=== PATIENT | female | born 2000 | race Caucasian/White ===

== ENCOUNTER 2020-03-16 02:15 | Emergency (ER) | payer SELFPAY ==
[~2020-03-16] VITALS: Ht 177.8 cm; Wt 131.5 kg
[2020-03-16] MEDS ORDERED: ONDANSETRON 4 MG/2 ML (SDV) Z0FRAN IVP ONE (03:00)
[2020-03-16] MEDS ORDERED: KETOROLAC 30 MG/ML VIAL IVP ONE (03:00)
[2020-03-16 03:20] LABS: BASOPHILS % (AUTO) 0 % (0-10); EOSINOPHILS # (AUTO) 0.2 10^3/uL (0.0-0.3); EOSINOPHILS % (AUTO) 2 % (0-10); HEMATOCRIT 39 % (35-52); HEMOGLOBIN 13.1 G/DL (11.5-16.0); LYMPHOCYTES # (AUTO) 2.8 X 10^3 (1.0-4.0); LYMPHOCYTES % (AUTO) 35 % (12-44); MEAN CORPUSCULAR HEMOGLOBIN 29 PG (25-34); MEAN CORPUSCULAR HGB CONC 34 G/DL (32-36); MEAN CORPUSCULAR VOLUME 86 FL (80-99); MEAN PLATELET VOLUME 11.6 FL (7.4-10.4); MONOCYTES # (AUTO) 0.8 X 10^3 (0.0-1.0); MONOCYTES % (AUTO) 10 % (0-12); NEUTROPHILS # (AUTO) 4.2 X 10^3 (1.8-7.8); NEUTROPHILS % (AUTO) 53 % (42-75); PLATELET COUNT 276 10^3/uL (130-400); RED CELL DISTRIBUTION WIDTH 12.6 % (10.0-14.5)
[2020-03-16 03:28] LABS: ALBUMIN 4.3 GM/DL (3.2-4.5)
[2020-03-16 03:29] LABS: CHLORIDE 108 MMOL/L (98-107); SODIUM 142 MMOL/L (135-145)
[2020-03-16 03:30] LABS: CALCIUM 9.6 MG/DL (8.5-10.1)
[2020-03-16 03:31] LABS: GLUCOSE 95 MG/DL (70-105); TOTAL PROTEIN 7.4 GM/DL (6.4-8.2)
[2020-03-16 03:32] LABS: CARBON DIOXIDE 22 MMOL/L (21-32)
[2020-03-16 03:33] LABS: BILIRUBIN,TOTAL 0.3 MG/DL (0.1-1.0)
[2020-03-16 03:35] LABS: ALKALINE PHOSPHATASE 80 U/L (40-136); GFR ESTIMATED > 60
[2020-03-16 03:36] LABS: BUN/CREATININE RATIO 17
[2020-03-16 03:38] LABS: ALANINE AMINOTRANSFERASE 37 U/L (0-55); LIPASE 20 U/L (8-78)
[2020-03-16] MEDS ORDERED: LACTATED RINGERS 1,000 ML IV ONE (03:56)
--- NOTE | 2020-03-16 04:06 | ED Abdominal Pain ---
General Chief Complaint: Abdominal/GI Problems Stated Complaint: UPPER ABD PAIN Source of Information: Patient Exam Limitations: No Limitations History of Present Illness Date Seen by Provider: Mar 16, 2020 Time Seen by Provider: 02:27 Initial Comments This 19-year-old young lady presents to the emergency room with complaints of epigastric and right upper quadrant pain radiating to her back since 22:00. She had eaten chili shortly before. She denies any vomiting, fever, diarrhea, or constipation. She does have nausea without vomiting. She denies any prior episodes. Allergies and Home Medications Allergies Coded Allergies: No Known Drug Allergies (Unverified , 03/16/20) Patient Home Medication List Home Medication List Reviewed: Yes Review of Systems Review of Systems Constitutional: no symptoms reported EENTM: No Symptoms Reported Respiratory: No Symptoms Reported Cardiovascular: No Symptoms Reported Gastrointestinal: See HPI Genitourinary: No Symptoms Reported Musculoskeletal: no symptoms reported Skin: no symptoms reported Psychiatric/Neurological: No Symptoms Reported Endocrine: No Symptoms Reported Hematologic/Lymphatic: No Symptoms Reported Past Nlcervl-Ssebnk-Jioicn Hx Past Med/Social Hx: Reviewed Nursing Past Med/Soc Hx Patient Social History Alcohol Use: Occasionally Uses Recreational Drug Use: No Smoking Status: Never a Smoker Recent Foreign Travel: No Contact w/Someone Who Travel: No Recent Hopitalizations: No Physical Abuse: No Sexual Abuse: No Mistreated: No Fear: No Seasonal Allergies Seasonal Allergies: No Past Medical History Surgeries: No Respiratory: No Cardiac: No Neurological: No : No Last Menstrual Period: Mar 09, 2020 Genitourinary: No Gastrointestinal: No Musculoskeletal: No Endocrine: No Cancer: No Psychosocial: Yes Anxiety, Depression Integumentary: No Physical Exam Vital Signs Vital Signs - First Documented 03/16/20 03/16/20 02:44 04:59 Temp 36.2 Pulse 79 Resp 20 B/P (MAP) 106/88 (94) Pulse Ox 100 O2 Delivery Room Air Capillary Refill : Height/Weight/BMI Height: '" Weight: lbs. oz. kg; BMI Method: General Appearance: WD/WN, mild distress, obese HEENT: PERRL/EOMI, normal ENT inspection Neck: normal inspection Respiratory: lungs clear, normal breath sounds, no respiratory distress, no accessory muscle use Cardiovascular: regular rate, rhythm, no edema, no murmur Gastrointestinal: normal bowel sounds, soft, tenderness (right upper quadrant and epigastrium with positive Lemons sign) Extremities: normal inspection, no pedal edema Neurologic/Psychiatric: non destructive evaluation manager II-XII nml as tested, no motor/sensory deficits, alert, oriented x 3, other (anxious) Skin: normal color, warm/dry Progress/Results/Core Measures Results/Orders Lab Results Laboratory Tests Test 03/16/20 03:05 03/16/20 04:21 Range/Units White Blood Count 8.0 4.3-11.0 10^3/uL Red Blood Count 4.51 4.35-5.85 10^6/uL Hemoglobin 13.1 11.5-16.0 G/DL Hematocrit 39 35-52 % Mean Corpuscular Volume 86 80-99 FL Mean Corpuscular Hemoglobin 29 25-34 PG Mean Corpuscular Hemoglobin Concent 34 32-36 G/DL Red Cell Distribution Width 12.6 10.0-14.5 % Platelet Count 276 130-400 10^3/uL Mean Platelet Volume 11.6 H 7.4-10.4 FL Neutrophils (%) (Auto) 53 42-75 % Lymphocytes (%) (Auto) 35 12-44 % Monocytes (%) (Auto) 10 0-12 % Eosinophils (%) (Auto) 2 0-10 % Basophils (%) (Auto) 0 0-10 % Neutrophils # (Auto) 4.2 1.8-7.8 X 10^3 Lymphocytes # (Auto) 2.8 1.0-4.0 X 10^3 Monocytes # (Auto) 0.8 0.0-1.0 X 10^3 Eosinophils # (Auto) 0.2 0.0-0.3 10^3/uL Basophils # (Auto) 0.0 0.0-0.1 10^3/uL Sodium Level 142 135-145 MMOL/L Potassium Level 4.0 3.6-5.0 MMOL/L Chloride Level 108 H 98-107 MMOL/L Carbon Dioxide Level 22 21-32 MMOL/L Anion Gap 12 5-14 MMOL/L Blood Urea Nitrogen 15 7-18 MG/DL Creatinine 0.90 0.60-1.30 MG/DL Estimat Glomerular Filtration Rate > 60 BUN/Creatinine Ratio 17 Glucose Level 95 70-105 MG/DL Calcium Level 9.6 8.5-10.1 MG/DL Corrected Calcium 9.4 8.5-10.1 MG/DL Total Bilirubin 0.3 0.1-1.0 MG/DL Aspartate Amino Transf (AST/SGOT) 21 5-34 U/L Alanine Aminotransferase (ALT/SGPT) 37 0-55 U/L Alkaline Phosphatase 80 40-136 U/L C-Reactive Protein High Sensitivity 0.30 0.00-0.50 MG/DL Total Protein 7.4 6.4-8.2 GM/DL Albumin 4.3 3.2-4.5 GM/DL Lipase 20 8-78 U/L Serum Test, Qualitative NEGATIVE NEGATIVE Urine Color YELLOW Urine Clarity SL CLOUDY Urine pH 5.5 5-9 Urine Specific [place] >=1.030 1.016-1.022 Urine Protein NEGATIVE NEGATIVE Urine Glucose (UA) NEGATIVE NEGATIVE Urine Ketones NEGATIVE NEGATIVE Urine Nitrite NEGATIVE NEGATIVE Urine Bilirubin NEGATIVE NEGATIVE Urine Urobilinogen 0.2 < = 1.0 MG/DL Urine Leukocyte Esterase NEGATIVE NEGATIVE Urine RBC (Auto) NEGATIVE NEGATIVE Urine RBC NONE /HPF Urine WBC NONE /HPF Urine Squamous Epithelial Cells 10-25 H /HPF Urine Crystals NONE /LPF Urine Bacteria FEW H /HPF Urine Casts NONE /LPF Urine Mucus MODERATE H /LPF Urine Culture Indicated NO My Orders Orders - JM MCFADDEN MD Cbc With Automated Diff (03/16/20 02:57) Comprehensive Metabolic Panel (03/16/20 02:57) Hs C Reactive Protein (03/16/20 02:57) Hcg,Qualitative Serum (03/16/20 02:57) Lipase (03/16/20 02:57) Ua Culture If Indicated (03/16/20 02:57) Ed Iv/Invasive Line Start (03/16/20 02:57) Ketorolac Injection (Toradol Injection) (03/16/20 03:00) Ondansetron Injection (Zofran Injectio (03/16/20 03:00) Lactated Ringers (Lr 1000 Ml Iv Solution (03/16/20 03:56) Medications Given in ED Current Medications Medications Dose Ordered Sig/Paul Route Start Time Stop Time Status Last Admin Dose Admin Ketorolac Tromethamine 15 mg ONCE ONCE IVP 03/16/20 03:00 03/16/20 03:01 DC 03/16/20 03:07 15 MG Lactated Ringer's 1,000 ml @ 0 mls/hr Q0M ONCE IV 03/16/20 03:56 03/16/20 03:57 DC 03/16/20 04:06 999 MLS/HR Ondansetron HCl 8 mg ONCE ONCE IVP 03/16/20 03:00 03/16/20 03:01 DC 03/16/20 03:07 8 MG Vital Signs/I&O 03/16/20 03/16/20 02:44 04:59 Temp 36.2 36.2 Pulse 79 70 Resp 20 18 B/P (MAP) 106/88 (94) 110/87 (94) Pulse Ox 100 O2 Delivery Room Air Room Air Progress Progress Note : Time: 04:02 Progress Note Patient was treated with Toradol and Zofran with significant improvement in symptoms. Symptoms are suspicious for gallbladder disease. An order for outpatient US is being provided. Workup in ED has been unremarkable. UA is pending. A 1L LR bolus has been ordered since patient will be asked to remain NPO until after her GB US. Departure Impression Primary Impression: Right upper quadrant pain Additional Impression: Nausea Disposition: 01 HOME, SELF-CARE Condition: Improved Departure-Patient Inst. Decision time for Depature: 04:05 Referrals: [facility] (PCP/Family) Primary Care Physician Patient Instructions: Acute Abdomen (Belly Pain), Adult (DC) Add. Discharge Instructions: Do not eat or drink until after your ultrasound. Return to the hospital at 7:30 this morning with your ultrasound order. Stay in the US department and wait for instructions. Return to the ER if you are having severe worsening of symptoms in the meantime. All discharge instructions reviewed with patient and/or family. Voiced understanding. Copy Copies To 1: KLAUS PATEL JOSHUA T MD Mar 16, 2020 04:06
[2020-03-16 04:34] LABS: BILIRUBIN,URINE NEGATIVE (NEGATIVE); CLARITY,URINE SL CLOUDY; COLOR,URINE YELLOW; GLUCOSE, URINE (UA) NEGATIVE (NEGATIVE); KETONES,URINE NEGATIVE (NEGATIVE); LEUKOCYTE ESTERASE ,URINE NEGATIVE (NEGATIVE); NITRITE,URINE NEGATIVE (NEGATIVE); PH,URINE 5.5 (5-9); PROTEIN,URINE NEGATIVE (NEGATIVE)
[2020-03-16 04:41] LABS: BACTERIA,URINE FEW /HPF
[2020-03-16 04:59] VITALS: BP 110/87
--- NOTE | 2020-03-16 04:59 | NUR ---
OUTPATIENT ORDER FORM FOR GALLBLADDER US GIVEN TO PT, COPY TO ER ONLINE MERCHANT, AND COPY SENT TO REGISTRATION/SCHEDULING DEPT.
== END 2020-03-16 04:59 | disposition home or self-care (01) ==
LOC: ER 02:21
DX: R10.11 Right upper quadrant pain (principal); R11.0 Nausea
CPT/HCPCS: 36415; 80053; 81000; 83690; 84703; 85025; 86141

== ENCOUNTER → 2020-03-16 | Outpatient (CLI) | payer SELFPAY ==
--- NOTE | 2020-03-16 12:22 | Diagnostic Imaging Report ---
PROCEDURE: US Gallbladder. TECHNIQUE: Multiple real-time grayscale images were obtained over the right upper quadrant in various projections. INDICATION: Right upper quadrant pain. FINDINGS: The liver is normal in size at 17.6 cm. No discrete liver mass is detected. Portal vein is patent and shows normal direction of flow. Gallbladder does contain small stones. There is a non-mobile stone in the region of the gallbladder neck. No significant wall thickening is seen. Extrahepatic bile duct is somewhat obscured. Pancreas was obscured. Visualized abdominal aorta in the midportion is non-aneurysmal. The proximal and distal aorta were obscured. IVC is obscured. Right kidney is without calculi or hydronephrosis. There is no ascites. IMPRESSION: 1. Cholelithiasis without evidence of acute cholecystitis. Dictated by: Dictated on workstation # [id number]
== END ==
LOC: RAD 07:30
PROVIDERS: ATTEND Family Medicine
DX: R11.0 Nausea (principal); K80.20 Calculus of gallbladder without cholecystitis without obstruction
CPT/HCPCS: 76705

== ENCOUNTER 2020-04-19 05:35 | Outpatient (CLI) | payer OTHER ==
[~2020-04-19] VITALS: Ht 178 cm; Wt 122.7 kg
[2020-04-19] MEDS ORDERED: CITA20TA12 PO (15:47)
== END 2020-04-19 15:48 | disposition home or self-care (01) ==
LOC: PREOP 05:35
PROVIDERS: ATTEND Surgery
DX: Z01.818 Encounter for other preprocedural examination (principal)

== ENCOUNTER 2020-04-26 08:32 | Day surgery (SDC) | payer OTHER ==
[2020-04-26] VITALS (11 sets, daily range): BP systolic 93–129; BP diastolic 66–76
[~2020-04-26] VITALS: Ht 178 cm; Wt 122.7 kg
[~2020-04-26 08:32] MED LIST: CITA20TA12 PO
[2020-04-26] MEDS ORDERED: ceFAZolin 2 GM IV Premixed 50 ML IV ONE (08:45)
[2020-04-26] MEDS ORDERED: LACTATED RINGERS 1,000 ML IV PRN (09:03)
[2020-04-26] MEDS ORDERED: MIDAZOLAM 2 MG/2 ML (VERSED) VIAL IVP ONE (09:30)
[2020-04-26] MEDS ORDERED: ceFAZolin 2 GM IV Premixed 50 ML ONE (09:43)
[2020-04-26] MEDS ORDERED: MIDAZOLAM 2 MG/2 ML (VERSED) VIAL ONE ×2 (09:43→10:00)
[2020-04-26] MEDS ORDERED: ROCURONIUM 10 MG/ML 5 ML SYRINGE IV ONE (09:59)
[2020-04-26] MEDS ORDERED: ONDANSETRON 4 MG/2 ML (SDV) Z0FRAN ONE (09:59)
[2020-04-26] MEDS ORDERED: LIDOCAINE PF 2% 5 ML (XYLOCAINE) VIAL ONE (09:59)
[2020-04-26] MEDS ORDERED: proPOfol 200 MG/20 ML (DIPRIVAN) VIAL IV ONE (09:59)
[2020-04-26] MEDS ORDERED: DESFLURANE (SUPRANE) 15 ML INHAL SOLN ONE ×4 (10:00→10:59)
[2020-04-26] MEDS ORDERED: fentaNYL INJECTION 100 MCG/2 ML AMP ONE ×2 (10:00→11:30)
[2020-04-26] MEDS ORDERED: BUP/EPI 0.5% 1:200,000 (MARCAINE) 10ML VIAL IJ ONE (10:08)
[2020-04-26] MEDS ORDERED: IOPAMIDOL 61% 30 ML (ISOVUE 300) VIAL ONE (10:08)
[2020-04-26] MEDS ORDERED: NEOSTIGMINE 3 MG/3 ML VIAL ONE (10:57)
[2020-04-26] MEDS ORDERED: GLYCOPYRROLATE 0.2 MG/ML (ROBINUL) 2 ML VIAL ONE (10:57)
--- NOTE | 2020-04-26 11:28 | Progress Note-Post Operative ---
Post-Operative Progess Note Surgeon (s)/Fruit Tester (s) Surgeon TYLER BARROS DO Fruit Tester: Dr. Latif to assist in retraction dissection and closure Pre-Operative Diagnosis symptomatic cholelithiasis Post-Operative Diagnosis same Procedure & Operative Findings Date of Procedure 04/26/20 Procedure Performed/Findings PROCEDURE: Laparoscopic cholecystectomy with intraoperative cholangiogram. COMPLICATIONS: None. PROCEDURE: The patient was taken to the operating suite and was prepped and draped in sterile fashion. A surgical pause was performed. Just superior to the umbilicus, a 12 mm incision was made. Dissection was taken down to the fascia, which was then scored and grasped with a Theo and the abdomen was then entered. A 0 Vicryl suture was placed in a [id number] fashion and a Soto trocar was placed and secured. Pneumoperitoneum was achieved. A 5mm trochar place in the subxyphoid and 2 in the right upper quadrant. The gallbladder was then grasped and elevated. Adhesions to gallbladder were then taken down with blunt and cautery dissection. The cystic duct, and cystic artery were then dissected out. Clip was placed on the distal portion of the cystic duct which was then partially transected. An arrow catheter was inserted into the duct. The cholangiogram was then performed. No filing defects and contrast made its way into the duodenum. Catheter removed. Clips were placed on proximal portion of the cystic duct and then the duct was then transected. Clips were placed along the proximal and distal portion of the cystic artery which was then transected. Hook cautery was used to dissect the gallbladder from the gallbladder fossa achieving hemostasis. The gallbladder was placed in an Endobag and removed through the 12 mm trocar site. The abdomen was then reinspected. Copious amounts of irrigation were used to irrigate the abdomen and there were no signs of active bleeding. Hemostasis had been achieved. The 12 mm fascial defect was then closed with 0 Vicryl suture that had been placed in a [id number] fashion. The abdomen was then desufflated, the trocars were removed. The abdomen was then washed and dried. The skin was then closed using 4-0 Monocryl in a subcuticular fashion. The abdomen was washed and dried and Skin Affix was place over incisions. Patient tolerated the procedure well without any complications and was taken to the recovery room in stable condition. Anesthesia Type general Estimated Blood Loss Estimated blood loss (mL): min Specimens/Packing Specimens Removed gallbladder TYLER BARROS DO Apr 26, 2020 11:28
[2020-04-26] MEDS ORDERED: HYDR-4226 PO (11:29)
[2020-04-26] MEDS ORDERED: DOCU-143 PO (11:29)
[2020-04-26] MEDS ORDERED: fentaNYL INJECTION 100 MCG/2 ML AMP IVP ONE (11:30)
[2020-04-26] MEDS ORDERED: MEPERIDINE (DEMEROL) INJ 50 MG/ML IVP ONE (11:30)
[2020-04-26] MEDS ORDERED: ONDANSETRON 4 MG/2 ML (SDV) Z0FRAN IVP PRN (11:30)
--- NOTE | 2020-04-26 11:30 | Discharge Inst-Simple/Standard ---
Discharge Inst-Standard Discharge Medications New, Converted or Re-Newed RX: RX on Chart Patient Instructions/Follow Up Plan of Care/Instructions/FU: 2 weeks diann Activity as Tolerated: Yes Discharge Diet: Regular Diet Other Inst to Patient Follow up Appt: Make appointment for 2 weeks. Instructions: No lifting greater than 10 pounds. No strenuous activity. May shower in 24 hours, no tub bath or soaking. Use incentive spirometer at home as directed. No Smoking Skin/Wound Care: You have special glue over incision, it will fall off on it's own. Symptoms to Report: Appetite Changes, Extremity Discoloration, Numbness/Tingling, Swelling Increased, Bleeding Excessive, Eyesight Changes, Pain Increased, Urine Color Change, Constipation(Persistent), Fever over 101 degree F, Pain/Pressure in [address], Urinating Difficulty, Cough Up/Vomit Blood, Heart Beat Irreg/Pounding, Pain/Pressure in jaw, Vaginal Bleeding Increase, Cramps in feet or legs, Lightheadedness, Pain/Pressure in shoulder, Diarrhea(Persistent), Memory Changes Suddenly, Questions/Concerns, Weight gain consecutive days, Dizziness/Fainting, Nausea/Vomiting, Shortness of Breath, Weight gain over 2 pounds. If eyes or skin turn yellow notify physician. If questions or concerns contact your physician Or seek help at emergency department. TYLER BARROS DO Apr 26, 2020 11:29
--- NOTE | 2020-04-26 11:34 | Diagnostic Imaging Report ---
INDICATION: Cholelithiasis. Studies performed to provide fluoroscopy during intraoperative cholangiogram. Fluoroscopy was provided during intraoperative cholangiogram. 14 seconds of fluoroscopic time was utilized. Images demonstrate contrast being injected via the cystic duct remnant. Extrahepatic bile duct is normal caliber. Intrahepatic ducts are normal caliber. No filling defects are seen to suggest retained stone. Contrast flows into the duodenum. IMPRESSION: Fluoroscopy during intraoperative cholangiogram. Dictated by: Dictated on workstation # [id number]
--- NOTE | 2020-04-26 12:06 | Anesthesia-General Post-Op ---
General Patient Condition Mental Status/LOC: Same as Preop Cardiovascular: Satisfactory Nausea/Vomiting: Absent Respiratory: Satisfactory Pain: Controlled Complications: Absent Post Op Complications Complications None Follow Up Care/Instructions Patient Instructions None needed. Anesthesia/Patient Condition Patient Condition Patient is doing well, no complaints, stable vital signs, no apparent adverse anesthesia problems. No complications reported per nursing. MARY ROBBINS CRNA Apr 26, 2020 12:06
[2020-04-26] MEDS ORDERED: HYDROcodone/APAP 5 MG/325 MG (LORTAB) TAB ONE (12:18)
[2020-04-26] MEDS ORDERED: HYDROcodone/APAP 5 MG/325 MG (LORTAB) TAB PO PRN (12:30)
== END 2020-04-26 13:53 | disposition home or self-care (01) ==
LOC: SDC 08:32
PROVIDERS: ATTEND Surgery
DX: K80.10 Calculus of gallbladder with chronic cholecystitis without obstruction (principal); J45.909 Unspecified asthma, uncomplicated; F32.9 Major depressive disorder, single episode, unspecified; F41.9 Anxiety disorder, unspecified; E66.01 Morbid (severe) obesity due to excess calories; Z68.38 Body mass index [BMI] 38.0-38.9, adult; Z79.899 Other long term (current) drug therapy; Z79.51 Long term (current) use of inhaled steroids; Z88.5 Allergy status to narcotic agent; Z80.9 Family history of malignant neoplasm, unspecified
CPT/HCPCS: 76000; 84703; 87081; 88304

== ENCOUNTER 2020-12-26 20:53 | Emergency (ER) | payer OTHER ==
[~2020-12-26] VITALS: Ht 178 cm; Wt 136.0 kg
[~2020-12-26 20:53] MED LIST changes: +DOCU-143 PO; +HYDR-4226 PO
[2020-12-26] MEDS ORDERED: SERT25TA PO (21:14)
[2020-12-26] MEDS ORDERED: NORG1TAB14 PO (21:14)
[2020-12-26 21:30] LABS: BILIRUBIN,URINE NEGATIVE (NEGATIVE); CLARITY,URINE CLEAR; COLOR,URINE YELLOW; GLUCOSE, URINE (UA) NEGATIVE (NEGATIVE); KETONES,URINE NEGATIVE (NEGATIVE); LEUKOCYTE ESTERASE ,URINE TRACE (NEGATIVE); NITRITE,URINE NEGATIVE (NEGATIVE); PROTEIN,URINE NEGATIVE (NEGATIVE)
[2020-12-26] MEDS ORDERED: LACTATED RINGERS 1,000 ML IV ONE (21:30)
[2020-12-26] MEDS ORDERED: ONDANSETRON 4 MG/2 ML (SDV) Z0FRAN IVP ONE ×2 (21:30→22:45)
[2020-12-26 21:40] LABS: BASOPHILS % (AUTO) 0 % (0-10); EOSINOPHILS # (AUTO) 0.1 10^3/uL (0.0-0.3); EOSINOPHILS % (AUTO) 1 % (0-10); HEMATOCRIT 41 % (35-52); HEMOGLOBIN 13.5 g/dL (11.5-16.0); LYMPHOCYTES # (AUTO) 2.6 10^3/uL (1.0-4.0); LYMPHOCYTES % (AUTO) 37 % (12-44); MEAN CORPUSCULAR HEMOGLOBIN 29 pg (25-34); MEAN CORPUSCULAR HGB CONC 33 g/dL (32-36); MEAN CORPUSCULAR VOLUME 87 fL (80-99); MEAN PLATELET VOLUME 11.3 fL (9.0-12.2); MONOCYTES # (AUTO) 0.7 10^3/uL (0.0-1.0); MONOCYTES % (AUTO) 10 % (0-12); NEUTROPHILS # (AUTO) 3.6 10^3/uL (1.8-7.8); NEUTROPHILS % (AUTO) 52 % (42-75); PLATELET COUNT 288 10^3/uL (130-400)
[2020-12-26 21:42] LABS: AMPHETAMINE SCREEN, URINE NEGATIVE (NEGATIVE); BARBITURATE SCREEN URINE NEGATIVE (NEGATIVE); BENZODIAZEPINES SCREEN URINE NEGATIVE (NEGATIVE); CANNABINOID SCREEN, URINE NEGATIVE (NEGATIVE); COCAINE SCREEN URINE NEGATIVE (NEGATIVE); METHADONE STAT NEGATIVE (NEGATIVE); METHAMPHETAMINE SCREEN URINE S NEGATIVE (NEGATIVE); OPIATE SCREEN URINE NEGATIVE (NEGATIVE); OXYCODONE STAT NEGATIVE (NEGATIVE); PROPOXYPHENE STAT NEGATIVE (NEGATIVE); TRICYCLIC ANTIDEPRESSANTS SCRE NEGATIVE (NEGATIVE)
[2020-12-26 21:45] LABS: WBC,URINE 25-50 /HPF
[2020-12-26 21:46] LABS: BACTERIA,URINE NEGATIVE /HPF
--- NOTE | 2020-12-26 21:58 | Diagnostic Imaging Report ---
EXAMINATION: CT head without contrast. TECHNIQUE: Multiple contiguous axial images were obtained through the brain without the use of intravenous contrast. All CT scans use one or more of the following dose optimizing techniques: automated exposure control, MA and/or KvP adjustment based on patient size and exam type or iterative reconstruction. HISTORY: Headache. Dizziness. COMPARISON: None available. FINDINGS: No large acute territorial ischemia, mass or hemorrhage. No midline shift or mass effect. The ventricles, cortical sulci and basilar cisterns are patent and unremarkable. The orbits are normal. Paranasal sinuses are normal. Mastoid air cells are clear. No soft tissue abnormality is seen. No osseus lesion or fracture is seen. IMPRESSION: No large acute territorial ischemia, mass or hemorrhage. Dictated by: Dictated on workstation # [id number]
[2020-12-26 22:01] LABS: ALBUMIN 4.1 GM/DL (3.2-4.5); ALKALINE PHOSPHATASE 81 U/L (40-136); AMYLASE 50 U/L (25-125); BILIRUBIN,TOTAL 0.3 MG/DL (0.1-1.0); BUN/CREATININE RATIO 11; CALCIUM 9.1 MG/DL (8.5-10.1); CARBON DIOXIDE 19 MMOL/L (21-32); CHLORIDE 106 MMOL/L (98-107); CREATININE SERUM 0.81 MG/DL (0.60-1.30); GFR ESTIMATED > 60; GLUCOSE 93 MG/DL (70-105); LIPASE 18 U/L (8-78); MAGNESIUM 1.8 MG/DL (1.6-2.4); POTASSIUM 3.8 MMOL/L (3.6-5.0); SODIUM 139 MMOL/L (135-145); TOTAL PROTEIN 7.5 GM/DL (6.4-8.2)
--- NOTE | 2020-12-26 22:07 | ED General ---
General Chief Complaint: Dizziness/Syncope Stated Complaint: LIGHT HEADED, NAUSEA Nursing Triage Note: c/o intermittant dizziness/shaking today. reports 1st dose moderna vaccine thursday with pain at injection site. Nursing Sepsis Screen: No Definite Risk History of Present Illness Date Seen by Provider: Dec 26, 2020 Time Seen by Provider: 21:14 Initial Comments PT ARRIVES VIA POV FROM HOME PT STATES ABOUT 1 1/2 HOURS AGO, SHE STARTED TO FEEL LIKE SHE WAS GOING TO FAINT--BEGAN FEELING DIZZY AND SHAKING ALL OVER DRANK HOT CHOCOLATE AND SYMPTOMS DID NOT IMPROVE PT HAD HER FIRST MODERNA COVID-19 VACCINE [facility] HER LEFT ARM WAS SWOLLEN AND SORE YESTERDAY BUT NOT TODAY STARTED HAVING A MILD HEADACHE, AND NAUSEA AND HAS FELT TIRED SINCE SHE GOT HER SHOT HAS NOT TAKEN ANYTHING FOR THOSE SYMPTOMS NO VOMITING OR DIARRHEA NO ABDOMINAL PAIN NO VISION CHANGES NO PARESTHESIAS OR MOTOR DEFICITS NO NECK STIFFNESS NO FEVER/SWEATS/CHILLS NO RECENT ILLNESS STATES SHE HAS CHRONIC HEADACHES--3-4 TIMES A WEEK HAS NEVER SOUGHT CARE FOR THEM HAS BEEN EATING NORMAL ALL DAY ATE 2 [employer]OLOGNA SANDWICHES FOR BREAKFAST, AND HAD SOUP FOR LUNCH, DID NOT EAT DINNER BUT HAD HOT CHOCOLATE PCP: FRANK PT IS ALSO A [employer] Allergies and Home Medications Allergies Coded Allergies: aspirin (Verified Allergy, Unknown, bradycardia, 04/19/20) Home Medications Hydroxyzine Pamoate 50 Mg Capsule, 50 MG PO Q6H PRN for ANXIETY Prescribed by: EVONEN VALDEZ on 12/26/202209 Nitrofurantoin Monohyd/M-Cryst 100 Mg Capsule, 1 TAB PO BID Prescribed by: EVONNE VALDEZ on 12/26/202209 Ondansetron 4 Mg Tab.rapdis, 4 MG PO Q4H Prescribed by: EVONNE VALDEZ on 12/26/202219 Patient Home Medication List Home Medication List Reviewed: Yes Review of Systems Review of Systems Constitutional: see HPI; No chills, No diaphoresis; dizziness; No fever; malaise EENTM: no symptoms reported; No ear pain, No blurred vision, No vision loss, No nose congestion, No throat pain, No throat swelling Respiratory: no symptoms reported; No cough, No short of breath Cardiovascular: no symptoms reported; No chest pain, No edema, No palpitations, No syncope Gastrointestinal: no symptoms reported; No abdominal pain, No diarrhea, No loss of appetite, No nausea, No vomiting Genitourinary: no symptoms reported Musculoskeletal: see HPI Skin: no symptoms reported; No rash Psychiatric/Neurological: See HPI, Anxiety, Headache; Denies Numbness, Denies Paresthesia, Denies Seizure, Denies Tingling; Tremors; Denies Weakness Hematologic/Lymphatic: No Symptoms Reported Immunological/Allergic: no symptoms reported Past [id number] Hx Past Med/Social Hx: Reviewed and Corrections made Patient Social History Alcohol Use: Occasionally Uses Drug of Choice: DENIES Smoking Status: Never a Smoker Recent Infectious Disease Expo: No Recent Hopitalizations: No Seasonal Allergies Seasonal Allergies: Yes Past Medical History Surgeries: Yes Gallbladder Respiratory: Yes (allergy induced asthma) Cardiac: No Neurological: No : No Genitourinary: No Gastrointestinal: Yes (S/P CHOLECYSTECTOMY) Gall Bladder Disease Musculoskeletal: No Endocrine: No HEENT: No Cancer: No Psychosocial: Yes Anxiety, Depression Integumentary: No Blood Disorders: No Physical Exam Vital Signs Vital Signs - First Documented 12/26/20 21:07 Temp 36.0 Pulse 95 Resp 18 B/P (MAP) 163/96 (118) Pulse Ox 97 O2 Delivery Room Air Capillary Refill : Less Than 3 Seconds Height, Weight, BMI Height: '" Weight: lbs. oz. kg; 42.00 BMI Method: General Appearance: No Apparent Distress, WD/WN, Anxious, Other (PT WITH "SHIVERING" AND OCCASIONAL MILD "STUTTERING" --THESE STOP WHEN PT IS DISTRACTED. ) HEENT: PERRL/EOMI, TMs Normal, Normal ENT Inspection, Pharynx Normal Neck: Full Range of Motion, Normal Inspection, Non Tender, Supple Respiratory: Normal Breath Sounds, No Accessory Muscle Use, No Respiratory Distress Cardiovascular: Regular Rate, Rhythm, No Edema, No JVD, No Murmur, Normal Peripheral Pulses Gastrointestinal: Normal Bowel Sounds, No Organomegaly, No Pulsatile Mass, Non Tender, Soft Back: Normal Inspection, No CVA Tenderness, No Vertebral Tenderness Extremity: Normal Capillary Refill, Normal Inspection, Normal Range of Motion, Non Tender, No Calf Tenderness, No Pedal Edema, Other (VACCINATION SITE TO LEFT UPPER ARM, WITH FAINT ERYTHEMA, NO SIGNFICANT TENDERNESS) Neurologic/Psychiatric: Alert, Oriented x3, No Motor/Sensory Deficits, courtesy car driver II- XII Norm as Tested, Other ( ABOVE) Skin: Normal Color, Warm/Dry; No Rash Progress/Results/Core Measures Suspected Sepsis Recent Fever Within 48 Hours: No Infection Criteria Present: None New/Unexplained Altered Menta: No Sepsis Screen: No Definite Risk SIRS Temperature: Pulse: 95 Respiratory Rate: 18 Laboratory Tests 12/26/20 21:28: White Blood Count 7.0 Blood Pressure 163 /96 Mean: 118 Laboratory Tests 12/26/20 21:28: Creatinine 0.81, Platelet Count 288, Total Bilirubin 0.3 Results/Orders Lab Results Laboratory Tests Test 12/26/20 21:20 12/26/20 21:28 Range/Units Urine Color YELLOW Urine Clarity CLEAR Urine pH 6.0 5-9 Urine Specific [place] >=1.030 1.016-1.022 Urine Protein NEGATIVE NEGATIVE Urine Glucose (UA) NEGATIVE NEGATIVE Urine Ketones NEGATIVE NEGATIVE Urine Nitrite NEGATIVE NEGATIVE Urine Bilirubin NEGATIVE NEGATIVE Urine Urobilinogen 0.2 < = 1.0 MG/DL Urine Leukocyte Esterase TRACE H NEGATIVE Urine RBC (Auto) NEGATIVE NEGATIVE Urine RBC NONE /HPF Urine WBC 25-50 H /HPF Urine Squamous Epithelial Cells 5-10 /HPF Urine Crystals NONE /LPF Urine Bacteria NEGATIVE /HPF Urine Casts NONE /LPF Urine Mucus NEGATIVE /LPF Urine Culture Indicated NO Urine Opiates Screen NEGATIVE NEGATIVE Urine Oxycodone Screen NEGATIVE NEGATIVE Urine Methadone Screen NEGATIVE NEGATIVE Urine Propoxyphene Screen NEGATIVE NEGATIVE Urine Barbiturates Screen NEGATIVE NEGATIVE Ur Tricyclic Antidepressants Screen NEGATIVE NEGATIVE Urine Phencyclidine Screen NEGATIVE NEGATIVE Urine Amphetamines Screen NEGATIVE NEGATIVE Urine Methamphetamines Screen NEGATIVE NEGATIVE Urine Benzodiazepines Screen NEGATIVE NEGATIVE Urine Cocaine Screen NEGATIVE NEGATIVE Urine Cannabinoids Screen NEGATIVE NEGATIVE White Blood Count 7.0 4.3-11.0 10^3/uL Red Blood Count 4.68 3.80-5.11 10^6/uL Hemoglobin 13.5 11.5-16.0 g/dL Hematocrit 41 35-52 % Mean Corpuscular Volume 87 80-99 fL Mean Corpuscular Hemoglobin 29 25-34 pg Mean Corpuscular Hemoglobin Concent 33 32-36 g/dL Red Cell Distribution Width 12.1 10.0-14.5 % Platelet Count 288 130-400 10^3/uL Mean Platelet Volume 11.3 9.0-12.2 fL Immature Granulocyte % (Auto) 0 % Neutrophils (%) (Auto) 52 42-75 % Lymphocytes (%) (Auto) 37 12-44 % Monocytes (%) (Auto) 10 0-12 % Eosinophils (%) (Auto) 1 0-10 % Basophils (%) (Auto) 0 0-10 % Neutrophils # (Auto) 3.6 1.8-7.8 10^3/uL Lymphocytes # (Auto) 2.6 1.0-4.0 10^3/uL Monocytes # (Auto) 0.7 0.0-1.0 10^3/uL Eosinophils # (Auto) 0.1 0.0-0.3 10^3/uL Basophils # (Auto) 0.0 0.0-0.1 10^3/uL Immature Granulocyte # (Auto) 0.0 0.0-0.1 10^3/uL Sodium Level 139 135-145 MMOL/L Potassium Level 3.8 3.6-5.0 MMOL/L Chloride Level 106 98-107 MMOL/L Carbon Dioxide Level 19 L 21-32 MMOL/L Anion Gap 14 5-14 MMOL/L Blood Urea Nitrogen 9 7-18 MG/DL Creatinine 0.81 0.60-1.30 MG/DL Estimat Glomerular Filtration Rate > 60 BUN/Creatinine Ratio 11 Glucose Level 93 70-105 MG/DL Calcium Level 9.1 8.5-10.1 MG/DL Corrected Calcium 9.0 8.5-10.1 MG/DL Magnesium Level 1.8 1.6-2.4 MG/DL Total Bilirubin 0.3 0.1-1.0 MG/DL Aspartate Amino Transf (AST/SGOT) 19 5-34 U/L Alanine Aminotransferase (ALT/SGPT) 23 0-55 U/L Alkaline Phosphatase 81 40-136 U/L Total Protein 7.5 6.4-8.2 GM/DL Albumin 4.1 3.2-4.5 GM/DL Amylase Level 50 25-125 U/L Lipase 18 8-78 U/L TSH D Lo Testing 1.26 0.35-4.94 UIU/ML My Orders Orders - EVONNE VALDEZ DO Urine Bedside (12/26/20 21:20) Amylase (12/26/20 21:20) Cbc With Automated Diff (12/26/20 21:20) Comprehensive Metabolic Panel (12/26/20 21:20) Drug Screen Stat (Urine) (12/26/20 21:20) Lipase (12/26/20 21:20) Magnesium (12/26/20 21:20) Thyroid Analyzer (12/26/20 21:20) Ua Culture If Indicated (12/26/20 21:20) Ondansetron Injection (Zofran Injectio (12/26/20 21:30) Ed Iv/Invasive Line Start (12/26/20 21:20) Ed Iv/Invasive Line Start (12/26/20 21:20) Lactated Ringers (Lr 1000 Ml Iv Solution (12/26/20 21:30) Ct Head Wo (12/26/20 21:20) Urine Culture (12/26/20 22:15) Ondansetron Injection (Zofran Injectio (12/26/20 22:45) Rx-Ondansetron Po (Rx-Zofran Po) (12/26/20 22:34) Rx-Ondansetron Po (Rx-Zofran Po) (12/26/20 22:30) Medications Given in ED Current Medications Medications Dose Ordered Sig/Paul Route Start Time Stop Time Status Last Admin Dose Admin Lactated Ringer's 1,000 ml @ 0 mls/hr Q0M ONCE IV 12/26/20 21:30 12/26/20 21:31 DC 12/26/20 21:27 0 MLS/HR Ondansetron HCl 4 mg ONCE ONCE IVP 12/26/20 21:30 12/26/20 21:31 DC 12/26/20 21:27 4 MG Ondansetron HCl 4 mg ONCE ONCE IVP 12/26/20 22:45 12/26/20 22:43 DC 12/26/20 22:36 4 MG Vital Signs/I&O 12/26/20 12/26/20 21:07 22:41 Temp 36.0 36.2 Pulse 95 67 Resp 18 16 B/P (MAP) 163/96 (118) 107/65 (118) Pulse Ox 97 99 O2 Delivery Room Air Room Air 12/27/20 00:00 Intake Total 1000 ml Balance 1000 ml Capillary Refill : Less Than 3 Seconds Blood Pressure Mean: 118 Progress Note : Progress Note PT CALMED SHORTLY AFTER ARRIVAL, AND SHIVERING AND STUTTERING WENT AWAY UNEVENTFUL ER STAY PT HAD NO OTHER COMPLAINTS FOR REMAINDER OF ER STAY Diagnostic Imaging Comments CT HEAD--NO ACUTE PROCESS, PER RADIOLOGIST REPORT AT 2207 Reviewed: Reviewed by Me Departure Impression Primary Impression: UTI (urinary tract infection) Additional Impressions: Anxiety Chronic headaches Disposition: HOME, SELF-CARE Condition: Stable Departure-Patient Inst. Referrals: [facility] (PCP/Family) Primary Care Physician Patient Instructions: Anxiety, Adult (DC), Urinary Tract Infection, Adult ED Add. Discharge Instructions: HOME, REST TYLENOL AND MOTRIN NEEDED FOR PAIN OR HEADACHE LOTS OF CLEAR LIQUIDS--NO COFFEE, POP OR TEA FOLLOW UP WITH [facility] OR [facility] IN 2-3 DAYS IF NO BETTER, RETURN TO ER IF WORSE All discharge instructions reviewed with patient and/or family. Voiced understanding. Scripts Ondansetron (Ondansetron Odt) 4 Mg Tab.rapdis 4 MG PO Q4H for Nausea/Vomiting, #10 TAB Prov: EVONNE VALDEZ DO 12/26/20 Hydroxyzine Pamoate (Hydroxyzine Pamoate) 50 Mg Capsule 50 MG PO Q6H PRN for ANXIETY, #10 CAP Prov: EVONNE VALDEZ DO 12/26/20 Nitrofurantoin Monohyd/M-Cryst (Macrobid 100 mg Capsule) 100 Mg Capsule 1 TAB PO BID, #20 CAP Prov: EVONNE VALDEZ DO 12/26/20 EVONNE VALDEZ DO Dec 26, 2020 22:07
[2020-12-26] MEDS ORDERED: HYDR50CA3 PO (22:10)
[2020-12-26] MEDS ORDERED: NITR-65 PO (22:10)
[2020-12-26] MEDS ORDERED: ONDA4TAB11 PO (22:20)
[2020-12-26 22:21] LABS: TSH (THYROID ANALYZER) 1.26 UIU/ML (0.35-4.94)
[2020-12-26] MEDS ORDERED: RX-ONDANSETRON 4 MG ODT (ZOFRAN) PPK #4 ONE (22:30)
[2020-12-26] MEDS ORDERED: RX-ONDANSETRON 4 MG ODT (ZOFRAN) PPK #4 PO STA (22:34)
[2020-12-26 22:41] VITALS: BP 107/65
[2020-12-26 22:46] LABS: ALANINE AMINOTRANSFERASE 23 U/L (0-55)
== END 2020-12-26 22:43 | disposition home or self-care (01) ==
LOC: EDUNIT# 20:53 → ER 20:57
DX: N39.0 Urinary tract infection, site not specified (principal); F41.9 Anxiety disorder, unspecified; R51.9 Headache, unspecified; Z88.8 Allergy status to other drugs, medicaments and biological substances
CPT/HCPCS: 36415; 70450; 80053; 80306; 81000; 82150; 83690; 83735; 84443; 84703; 85025; 87088